=== PATIENT | female | born 1945 | race Hispanic/Latino ===

== ENCOUNTER → 2017-09-06 | Outpatient (CLI) | payer OTHER | END | disposition home or self-care (01) | LOC: RAH 09:18 | PROVIDERS: ATTEND Internal Medicine | DX: Z12.31 Encounter for screening mammogram for malignant neoplasm of breast (principal) | CPT/HCPCS: 77067 ==

== ENCOUNTER → 2018-09-07 | Outpatient (CLI) | payer OTHER | END | disposition home or self-care (01) | LOC: RAH 09:59 | PROVIDERS: ATTEND Internal Medicine | DX: Z12.31 Encounter for screening mammogram for malignant neoplasm of breast (principal) | CPT/HCPCS: 77067 ==

== ENCOUNTER → 2019-12-22 | Outpatient (CLI) | payer OTHER | END | disposition home or self-care (01) | LOC: RAH 11:30 | PROVIDERS: ATTEND Internal Medicine | DX: Z12.31 Encounter for screening mammogram for malignant neoplasm of breast (principal) | CPT/HCPCS: 77067 ==

== ENCOUNTER → 2020-12-23 | Outpatient (CLI) | payer OTHER | END | disposition home or self-care (01) | LOC: RAH 08:28 | PROVIDERS: ATTEND Internal Medicine | DX: Z12.31 Encounter for screening mammogram for malignant neoplasm of breast (principal) | CPT/HCPCS: 77067 ==

== ENCOUNTER → 2022-01-29 | Outpatient (CLI) | payer OTHER ==
[~2022-01-29] MED LIST: GADOTERATE MEGLUMINE 10 MMOL/20 ML VIAL IV ONE
== END | disposition home or self-care (01) ==
LOC: RAH 08:19
PROVIDERS: ATTEND Internal Medicine
DX: M48.061 Spinal stenosis, lumbar region without neurogenic claudication (principal); M54.16 Radiculopathy, lumbar region
CPT/HCPCS: 72158; A9575

== ENCOUNTER 2022-02-03 22:45 | Observation (INO) | payer OTHER ==
[~2022-02-03] VITALS: Ht 149.9 cm; Wt 50.7 kg
[2022-02-03 23:27] LABS: BASOPHILS % (AUTO) 0.2 % (0.0-5.0); EOSINOPHILS % (AUTO) 0.7 % (0.0-8.0); HEMATOCRIT 31.7 % (36-48); LYMPHOCYTES % (AUTO) 15.4 % (21.0-51.0); MEAN CORPUSCULAR HEMOGLOBIN 29.2 pg (27.0-33.0); MEAN CORPUSCULAR HGB CONC 33.8 g/dL (32.0-36.0); MEAN CORPUSCULAR VOLUME 86.6 fL (79-99); MONOCYTES % (AUTO) 7.8 % (3.0-13.0); NEUTROPHILS % (AUTO) 75.6 % (40.0-77.0); PLATELET COUNT (AUTO) 483 K/uL (130-400); RED BLOOD CELL COUNT(AUTO) 3.66 MIL/uL (4.00-5.50); RED CELL DISTRIBUTION WIDTH 11.9 % (11.0-15.5); WHITE BLOOD COUNT (AUTO) 8.8 K/uL (4.8-10.8)
[2022-02-03] MEDS ORDERED: KETOROLAC 30MG VIAL (30MG/ML) IVP ONE (23:30)
[2022-02-03] MEDS ORDERED: CYCLOBENZAPRINE HCL 10 MG TABLET PO ONE (23:30)
[2022-02-03] MEDS ORDERED: ONDANSETRON 4MG INJ IVP ONE (23:30)
[2022-02-03 23:46] LABS: CREATININE 0.6 mg/dL (0.5-1.5); POTASSIUM 3.7 mmol/L (3.5-5.1)
[2022-02-03 23:49] LABS: CRP QUANTITATIVE 86.2 mg/L (0.00-9.0); TOTAL PROTEIN, SERUM 6.9 g/dL (6.0-8.3)
[2022-02-03 23:52] LABS: APPEARANCE,URINE CLEAR (CLEAR); BILIRUBIN,URINE NEGATIVE (NEGATIVE); COLOR,URINE YELLOW (YELLOW); GLUCOSE, URINE (UA) NEGATIVE (NEGATIVE); KETONES,URINE NEGATIVE (NEGATIVE); LEUKOCYTE ESTERASE ,URINE NEGATIVE (NEGATIVE); NITRATE,URINE NEGATIVE (NEGATIVE); OCCULT BLOOD,URINE SMALL (NEGATIVE); PROTEIN,URINE NEGATIVE (NEGATIVE); UROBILINOGEN,URINE 0.2 mg/dL (0.2-1.0)
[2022-02-04] MEDS ORDERED: CLONIDINE HCL 0.1 MG TABLET PO PRN
[2022-02-04] MEDS ORDERED: TEMAZEPAM 15 MG CAPSULE PO PRN
[2022-02-04] MEDS ORDERED: LABETALOL 20MG SYG IV PRN
[2022-02-04] MEDS ORDERED: HYDRALAZINE 20MG/ML VIAL IV PRN
[2022-02-04] MEDS ORDERED: ONDANSETRON 4MG INJ IVP PRN
[2022-02-04] MEDS ORDERED: LACTULOSE 20 GM/30 ML UDCUP PO PRN
[2022-02-04] MEDS ORDERED: KETOROLAC 30MG VIAL (30MG/ML) IM PRN
[2022-02-04 00:03] LABS: BACTERIA,URINE None Seen /HPF (None Seen); SQUAMOUS EPITHELIAL CELL,UR Few /HPF (0-2); WBC,URINE 0-1 /HPF (0-1)
[2022-02-04 00:04] LABS: B-TYPE NATRIURETIC PEPTIDE 23 pg/mL (0-100)
[2022-02-04] MEDS: 0.9%NACL 1000ML 1,000 ML IV SCH ×3 (00:23→20:42)
[2022-02-04 03:00] VITALS: BP 136/76
[2022-02-04] MEDS ORDERED: IBUP-2077 PO (05:41)
[2022-02-04] MEDS ORDERED: ACET-2743 PO (05:41)
[2022-02-04] MEDS ORDERED: ROSU5TAB12 PO (05:42)
[2022-02-04] MEDS ORDERED: LISI40TA9 PO (05:42)
[2022-02-04 06:13] LABS: MEAN CORPUSCULAR HEMOGLOBIN 28.9 pg (27.0-33.0); MEAN CORPUSCULAR HGB CONC 33.1 g/dL (32.0-36.0); MEAN CORPUSCULAR VOLUME 87.3 fL (79-99); RED BLOOD CELL COUNT(AUTO) 3.32 MIL/uL (4.00-5.50); RED CELL DISTRIBUTION WIDTH 11.9 % (11.0-15.5)
[2022-02-04 06:23] LABS: CREATININE 0.7 mg/dL (0.5-1.5); PHOSPHORUS 3.9 mg/dL (2.5-4.9); POTASSIUM 4.2 mmol/L (3.5-5.1)
[2022-02-04] MEDS ORDERED: ERGO500093 PO (07:32)
[2022-02-04] MEDS ORDERED: NON FORMULARY PO (07:32)
[2022-02-04] MEDS ORDERED: CYAN100T45 PO (07:32)
[2022-02-04] MEDS ORDERED: UBID1CAP56 PO (07:32)
[2022-02-04] MEDS ORDERED: CALC-1252 PO (07:32)
[2022-02-04 07:50] VITALS: BP 134/79
[2022-02-04] MEDS: CYCLOBENZAPRINE HCL 10 MG TABLET PO SCH ×3 (09:19→20:42)
[2022-02-04] MEDS: ENOXAPARIN SODIUM 30 MG/0.3 ML SQ SCH (09:19)
[2022-02-04] MEDS: VIT E ACETATE PO SCH (11:23)
[2022-02-04] MEDS: UBIDECARENONE PO SCH (11:23)
[2022-02-04] MEDS ORDERED: IBUPROFEN 800 MG TAB PO PRN (11:30)
[2022-02-04] MEDS: CA 600MG+VIT D 400 UNIT TAB 1 TAB TABLET PO SCH (11:51)
[2022-02-04] MEDS: ACETAMINOPHEN 500 MG TABLET PO SCH ×4 (11:53→23:30)
[2022-02-04] MEDS: LISINOPRIL 40 MG TABLET ONE ×2 (13:57→13:58)
[2022-02-04 16:02] VITALS: BP 134/79
[2022-02-04] MEDS ORDERED: DEXAMETHASONE SOD PHOSPHATE 4 MG/ML 1ML VIAL IVP ONE (18:00)
[2022-02-04 19:30] VITALS: BP 140/83
[2022-02-04] MEDS ORDERED: ATORVASTATIN 10 MG TABLET PO SCH (21:00)
[2022-02-04 23:58] VITALS: BP 121/64
[2022-02-05 04:31] VITALS: BP 128/75
[2022-02-05] MEDS ORDERED: DEXAMETHASONE SOD PHOSPHATE 4 MG/ML 1ML VIAL IV SCH (06:00)
[2022-02-05] MEDS: 0.9%NACL 1000ML 1,000 ML IV SCH (06:00)
[2022-02-05] MEDS: ACETAMINOPHEN 500 MG TABLET PO SCH (06:10)
[2022-02-05 08:03] VITALS: BP 133/72
[2022-02-05] MEDS: CA 600MG+VIT D 400 UNIT TAB 1 TAB TABLET PO SCH (08:40)
[2022-02-05] MEDS: VIT E ACETATE PO SCH (08:42)
[2022-02-05] MEDS: UBIDECARENONE PO SCH (08:42)
[2022-02-05] MEDS: CYCLOBENZAPRINE HCL 10 MG TABLET PO SCH (08:47)
[2022-02-05] MEDS: ENOXAPARIN SODIUM 30 MG/0.3 ML SQ SCH (08:53)
[2022-02-05] MEDS ORDERED: ERGOCALCIFEROL (VITAMIN D2) 50,000 UNIT CAPSULE PO SCH (09:00)
[2022-02-05] MEDS ORDERED: LISINOPRIL 40 MG TABLET PO SCH (09:00)
[2022-02-05] MEDS ORDERED: CYANOCOBALAMIN (VITAMIN B-12) 100 MCG TABLET PO SCH (09:00)
[2022-02-05] MEDS ORDERED: VITAMIN D2 PO SCH (09:07)
[2022-02-05] MEDS ORDERED: PANT40TA55 PO (11:17)
[2022-02-05] MEDS ORDERED: LACTULOSE 20 GM/30 ML UDCUP PR SCH (11:30)
[2022-02-11] MEDS ORDERED: DULO30CA52 PO (14:09)
[2022-02-11] MEDS ORDERED: CHOL200052 PO (16:40)
[2022-02-11] MEDS ORDERED: MELA5TAB14 PO (16:40)
[2022-02-18] MEDS ORDERED: PIND5 PO (10:45)
== END 2022-02-05 17:50 | disposition home or self-care (01) ==
LOC: EDH 22:45 → EDHIP 02-04 01:41 → 3CH 02-04 03:06
PROVIDERS: ADMIT Internal Medicine; ATTEND Internal Medicine
DX: M48.07 Spinal stenosis, lumbosacral region (principal); Z20.822 Contact with and (suspected) exposure to COVID-19; M47.26 Other spondylosis with radiculopathy, lumbar region; D64.9 Anemia, unspecified; E87.8 Other disorders of electrolyte and fluid balance, not elsewhere classified; R73.9 Hyperglycemia, unspecified; I10 Essential (primary) hypertension; E78.5 Hyperlipidemia, unspecified; E78.00 Pure hypercholesterolemia, unspecified; F41.9 Anxiety disorder, unspecified; G47.33 Obstructive sleep apnea (adult) (pediatric); R42 Dizziness and giddiness; G89.4 Chronic pain syndrome; R09.02 Hypoxemia; Z79.899 Other long term (current) drug therapy
CPT/HCPCS: 96374; 96375 ×2; 99284; 84484; 80053; 83880; 85025; 83605; 86140; 81001; 71045; 96372 ×2; 96361 ×2; 83735; 84100; 80048; 85027; 87804 ×2; 36415 ×2; 87635; 72141; 72146; 96376; 82270; J1100 ×2; J2405; J1885; G0378 ×40; J7030 ×2; J1650 ×2

== ENCOUNTER → 2022-09-17 | Outpatient (CLI) | payer OTHER ==
[~2022-09-17] MED LIST changes: +ACET-2743 PO; +CALC-1252 PO; +CHOL200052 PO; -GADOTERATE MEGLUMINE 10 MMOL/20 ML VIAL IV ONE; +MELA5TAB14 PO; +PIND5 PO; +ROSU5TAB12 PO; +UBID1CAP56 PO
== END | disposition home or self-care (01) ==
LOC: RAH 09:46
PROVIDERS: ATTEND Internal Medicine
DX: Z12.31 Encounter for screening mammogram for malignant neoplasm of breast (principal)
CPT/HCPCS: 77067

== ENCOUNTER 2024-07-09 15:33 | Emergency (ER) | payer OTHER ==
[~2024-07-09] VITALS: Ht 149.9 cm; Wt 52.6 kg
[~2024-07-09 15:33] MED LIST changes: -MELA5TAB14 PO; +MELA5TAB66 PO; -ROSU5TAB12 PO; +ROSU5TAB51 PO
--- NOTE | 2024-07-09 15:43 | ERN ---
ED Note History of Present Illness Stated Complaint: CP Chief Complaint: Chest Pain Time Seen by MD: 15:39 Dictation: PATIENT IS A 78-YEAR-OLD FEMALE COMING IN TODAY WITH FEELING FLUSHED IN THE HEAD AND FACE, STATES HER BLOOD PRESSURE HAS BEEN ELEVATED SINCE THIS MORNING. SHE DENIES CHEST PAIN BACK PAIN SOB NO NAUSEA VOMITING. STATES SHE TAKES LISINOPRIL 10 MG DAILY, TOOK IT THIS MORNING AFTER BREAKFAST. CURRENT BLOOD PRESSURE 199/89 IN TRIAGE. PATIENT STATES SHE FEELS ANXIOUS. NIH IS 0 Allergies: Coded Allergies: codeine (Unverified Allergy, Mild, TREMBLING JAW, 01/29/22) promethazine (Unverified Allergy, Unknown, AGGRESSIVE BEHAVIOR, 01/29/22) sulfamethoxazole (Unverified Allergy, Unknown, NAUSEA, 01/29/22) trimethoprim (Unverified Allergy, Unknown, NAUSEA, 01/29/22) Home Meds Active Scripts Pindolol (Visken) 5 Mg Tab, 2.5 MG PO BID, #60 TAB 0 Refills Prov:CARMEN MARTINEZ [employer]IC[employer]ATION [employer]FTING OFFICER 02/18/22 Reported Medications Melatonin (Melatonin) 5 Mg Tablet, 5 MG PO HS PRN for INSOMNIA, TAB 02/11/22 Cholecalciferol (Vitamin D3) (Vitamin D3) 50 Mcg Tablet, 50 MCG PO DAILY, TAB 02/11/22 Ubidecarenone/Vit E Acetate (Co Q-10 100 mg Softgel) 1 Each Capsule, 1 EACH PO BID, CAP 02/04/22 Calcium/D3/Zinc/Copper/[place] (Citracal-D3 Maximum Plus Caplt) 1 Each Tablet, 1 EACH PO DAILY, TAB 02/04/22 Rosuvastatin Calcium (Rosuvastatin Calcium) 5 Mg Tablet, 5 MG PO DAILY, TAB 02/04/22 Acetaminophen (Tylenol Extra Strength) 500 Mg Tablet, 500 MG PO q 8hours for moderate pain, TAB 02/04/22 Past Medical History Past Medical History: High Cholesterol, Hypertension Additional Past Medical Hx: Lumbar spinal stenosis, chronic pain syndrome Surgical History: Family History: Negative Social History: Negative, Other History: Not Applicable RN Note Reviewed/Agreed w/PFSH: Yes Review of System Dictation CONSTITUTIONAL: NEGATIVE EXCEPT FOR HPI FLUSHED HEAD/FACE: NEGATIVE EXCEPT FOR HPI EENT: NEGATIVE EXCEPT FOR HPI RESPIRATORY: NEGATIVE EXCEPT FOR HPI GASTROINTESTINAL/ABDOMINAL: NEGATIVE EXCEPT FOR HPI GENITOURINARY: NEGATIVE EXCEPT FOR HPI MUSCULOSKELETAL: NEGATIVE EXCEPT FOR HPI INTEGUMENTARY: NEGATIVE EXCEPT FOR HPI NEUROLOGICAL/PSYCH: NEGATIVE EXCEPT FOR HPI HEMATOLOGIC/LYMPHATIC: NEGATIVE EXCEPT FOR HPI ALL SYSTEMS NEGATIVE, EXCEPT NOTED ABOVE. 13 POINT REVIEW OF SYSTEMS ASSESSED AND ALL NEGATIVE EXCEPT FOR ABOVE. Initial Vital Sign VS Vital Signs Date Time Temp Pulse Resp B/P (MAP) Pulse Ox O2 Delivery O2 Flow Rate FiO2 07/09/24 15:37 97.5 84 18 199/89 99 Room Air 07/09/24 16:00 0 21 Physical Exam Dictation VITAL SIGNS REVIEWED GENERAL APPEARANCE: ALERT, ORIENTED X 3, MILD ACUTE DISTRESS, WELL DEVELOPED, NOURISHED. ANXIOUS HEAD AND FACE: NON-TRAUMATIC. EYES: PERRL, PINK CONJUNCTIVAS, EYELID NO TRAUMA, ANTERIOR CHAMBER WITH ARCUS SENILIS. EARS: PINNAS INTACT AND NO SIGNS OF TRAUMA OR ERYTHEMA EAR CANALS CLEAR AND NO DISCHARGE TM NO ERYTHEMA NOSE: NO DISCHARGE, NO BLEEDING. OROPHARYNX: MOUTH NORMAL, TONGUE PINK, PHARYNX CLEAR,NO ERYTHEMA, TONSILS NO EXUDATES, NO ABSCESSES NOTED, MUCOUS MEMBRANE MOIST NECK: SUPPLE, NON-TENDER, NO THYROMEGALY, NO MASSES, NO JVD, NO BRUITS BREAST:DEFERRED CHEST:NO TENDERNESS, NO CREPITUS, NO PARADOXICAL MOVEMENT, NO RETRACTIONS LUNGS:CLEAR, WELL-VENTILATED, SYMMETRIC, NO RALES, NO WHEEZING, NO RHONCHI, NO STRIDOR, GOOD BREATH SOUNDS BILATERALLY HEART: REGULAR RATE, REGULAR RHYTHM, NO MURMUR, NO GALLOPS VASCULAR: NO PERIPHERAL EDEMA, ABDOMEN: SOFT, POSITIVE BOWEL SOUNDS, NONDISTENDED, NO GUARDING, NONTENDER, NO REBOUND, NO MASSES NO HEPATOMEGALY, NO SPLENOMEGALY, NO CORREA'S SIGN, NO HERNIAS. RECTAL: DEFERRED GENITAL: DEFERRED NEUROLOGICAL: NORMAL SPEECH, MOTOR FUNCTION INTACT, SENSORY FUNCTION INTACT MUSCULOSKELETAL: NECK NONTENDER, FULL RANGE OF MOTION, BACK NONTENDER, FULL RANGE OF MOTION, EXTREMITIES: NONTENDER, FULL RANGE OF MOTION SKIN: COLOR PINK, DRY, NO TURGOR, NO RASH, NO LACERATIONS, NO ABRASIONS, NO CONTUSIONS. LYMPHATIC: DEFERRED Results (Laboratory/Radiology) Laboratory/Radiology Laboratory Tests Test 07/09/24 16:15 White Blood Count 6.9 K/uL (4.8-10.8) Red Blood Count 4.44 MIL/uL (4.00-5.50) Hemoglobin 13.5 g/dL (12.0-16.0) Hematocrit 40.6 % (36-48) Mean Corpuscular Volume 91.4 fL (79-99) Mean Corpuscular Hemoglobin 30.4 pg (27.0-33.0) Mean Corpuscular Hemoglobin Concent 33.3 g/dL (32.0-36.0) Red Cell Distribution Width 11.9 % (11.0-15.5) Platelet Count 222 K/uL (130-400) Mean Platelet Volume 9.8 fL (7.5-10.5) Immature Granulocyte % (Auto) 0.3 % (0-1) Neutrophils (%) (Auto) 62.5 % (40.0-77.0) Lymphocytes (%) (Auto) 26.9 % (21.0-51.0) Monocytes (%) (Auto) 6.9 % (3.0-13.0) Eosinophils (%) (Auto) 3.0 % (0.0-8.0) Basophils (%) (Auto) 0.4 % (0.0-5.0) Neutrophils # (Auto) 4.3 K/uL (1.8-7.7) Lymphocytes # (Auto) 1.9 K/uL (1.0-4.8) Monocytes # (Auto) 0.5 K/uL (0.1-1.0) Eosinophils # (Auto) 0.21 K/uL (0.00-0.70) Basophils # (Auto) 0.03 K/uL (0.00-0.20) Absolute Immature Granulocyte (auto 0.02 K/uL (0-1) Nucleated Red Blood Cells 0.0 % (0.0-0.19) Sodium Level 138 mmol/L (136-145) Potassium Level 4.0 mmol/L (3.5-5.1) Chloride Level 100 mmol/L (101-111) L Carbon Dioxide Level 31 mmol/L (21-32) Blood Urea Nitrogen 13 mg/dL (7-18) Creatinine 0.6 mg/dL (0.5-1.0) Glomerular Filtration Rate Calc 92 mL/min (>90) Random Glucose 95 mg/dL (70-105) Total Calcium 9.1 mg/dL (8.5-10.1) Troponin I High Sensitivity < 4 ng/L (4-50) L Labs Reviewed?: Yes EKG: (+) NSR EKG Comment: EKG NORMAL SINUS RHYTHM/HEART RATE 63/AXIS NORMAL/NO ECTOPY ED Course ED Course Orders Procedure Category Date Status Time Clonidine Hcl 0.1 Mg PHA 07/09/24 Complete Tablet (Catapres 0. 16:00 Cbc With Differential LAB 07/09/24 Complete 15:41 Troponin I High LAB 07/09/24 Complete Sensitivity 15:41 Basic Metabolic Panel LAB 07/09/24 Complete 15:41 12 Lead Ekg Tracing- EKG 07/09/24 Complete Technical 15:41 Current Medications Medications (Trade) Dose Ordered Sig/Lorenzo Route PRN Reason Start Time Stop Time Status Last Admin Dose Admin Clonidine HCl (CATApres 0.1 mg TAB) 0.1 mg ONCE ONCE PO 07/09/24 16:00 07/09/24 16:01 DC 07/09/24 16:13 Vital Signs Date Time Temp Pulse Resp B/P (MAP) Pulse Ox O2 Delivery O2 Flow Rate FiO2 07/09/24 17:00 65 15 154/77 99 Room Air* 0 21 07/09/24 16:13 180/84 07/09/24 16:00 98.1 71 15 180/84 98 Room Air* 0 21 07/09/24 15:37 97.5 84 18 199/89 99 Room Air REPEAT BLOOD PRESSURE 154/77. PATIENT REMAINS WITHOUT CHEST PAIN AT THIS TIME. SHE IS AWARE HER CARDIAC WORKUP IS NEGATIVE, LISINOPRIL WE WILL BE INCREASED TO 20 MG P.O. DAILY. ALSO SEE HER PRIMARY CARE DOCTOR FOR FOLLOW UP HEART Score Response (Comments) Value History: Low suspicion (0) 0 EKG: Repolarization changes 1 Age: 45-65yrs (+1) 1 Risk Factors: 1-2 risk factors (+1) 1 Initial Troponin: Normal limit (0) 0 Total 3 Medical Decision Making MDM MDM: DIFFERENTIAL DIAGNOSIS: ACS/AMI/ELECTROLYTE IMBALANCE/DEHYDRATION/UNCONTROLLED HYPERTENSION RATIONALE: TESTS CONSIDERED AND ORDERED SECONDARY TO SHARED DECISION MAKING INCLUDE: EKG/LABS PREVIOUS OUTSIDE RECORDS REVIEWED: OLD ER VISITS. RISK OF COMPLICATION AND/OR MORBIDITY OR MORTALITY OF PATIENT MANAGEMENT: NONE MEDICATIONS-PER MEDICATION RECONCILIATION NEED FOR HOSPITALIZATION: PATIENT DOES NOT MEET CRITERIA FOR HOSPITALIZATION. NO NEED FOR EMERGENCY MAJOR/MINOR SURGERY: NO THERE ARE NO SOCIAL CONCERNS WITH THIS PATIENT. PRESCRIPTION DRUG MANAGEMENT INCREASE LISINOPRIL FROM 10 MG DAILY TO 20 MG DAILY. PRESCRIPTIONS WILL INCLUDE SYMPTOMATIC CARE PATIENT'S PRIOR EXTERNAL MEDICAL RECORDS FROM OTHER ER VISITS WERE REVIEWED BY ME INDICATED. PRIOR TESTING AND RESULTS FROM PREVIOUS VISITS WERE REVIEWED. PRIOR TESTS WERE TAKEN INTO ACCOUNT WITH MEDICAL DECISION MAKING AND RESOURCE UTILIZATION, INDEPENDENT HISTORIAN/HISTORIANS WERE USED TO OBTAIN COMPLETE MEDICAL HISTORY. I INDEPENDENTLY INTERPRETED THE TEST THAT WERE PERFORMED, RESULTS WERE REVIEWED BY ME AND CONSIDERED FINDINGS ON RADIOLOGY IF ORDERED. MEDICAL MANAGEMENT AND EXAMINATION INTERPRETATION DISCUSSIONS WERE HAD BY ME WITH OTHER QUALIFIED HEALTHCARE PROFESSIONALS INDICATED FOR THE PATIENT'S CARE. DX & DISP Disposition: Discharge Departure Impression: Primary Impression: Atypical chest pain Additional Impressions: Accelerated hypertension, Anxiety Condition: Stable Scripts Lisinopril (Lisinopril) 20 Mg Tablet 1 TAB PO DAILY for 30 Days, #30 TAB 0 Refills Prov: LORI CABA NP 07/09/24 Additional Instructions: FOLLOW-UP WITH PRIMARY CARE PROVIDER IN 1 TO 2 DAYS. TAKE MEDICATIONS DIRECTED HERE IN THE EMERGENCY ROOM. OKAY TO CONTINUE HOME MEDICATIONS UNLESS OTHERWISE DISCUSSED DURING YOUR VISIT IN THE EMERGENCY ROOM TODAY. RETURN TO YOUR NEAREST EMERGENCY ROOM IF SYMPTOMS WORSEN OR IF THERE IS NO IMPROVEMENT. CALL 911 IF YOU NEED IMMEDIATE ASSISTANCE. TAKE TYLENOL OR MOTRIN [id number] NEEDED AND IF NO CONTRAINDICATIONS ARE PRESENT. INCREASE ORAL HYDRATION. A WOUND CULTURE OR URINE CULTURE WAS ORDERED HERE IN THE EMERGENCY ROOM DEPARTMENT PLEASE FOLLOW-UP WITH PRIMARY CARE PROVIDER AND ADVISE THEM TO GET REPEAT PORTS FROM OUR FACILITY. IF YOU HAD ANY BRETT WRAP/SPLINTS T HAT WERE APPLIED HERE, PLEASE DO NOT REMOVE THEM UNTIL YOU SEE YOUR PRIMARY CARE OR SPECIALTY. INCREASE LISINOPRIL TO 20 MG DAILY, SEE YOUR PRIMARY CARE DOCTOR FOR FOLLOW UP IN 1-2 DAYS. Referrals: CONCHA LUNA MD (PCP) Time of Disposition: 18:30 I have reviewed the case, and I agree with, Diagnosis and Plan LORI CABA NP Jul 09, 2024 15:43
--- NOTE | 2024-07-09 16:00 | NUR ---
PATIENT BEDDED TO RM 18
[2024-07-09] MEDS: cloNIDine HCL 0.1 MG TABLET PO ONE (16:13)
--- NOTE | 2024-07-09 16:20 | EKG ---
[facility] Test Date: 2024-07-09 Test Time: 15:37:58 Pat Name: VERONICA MORENO Department: ED Room: Gender: F Industrial Paramedic: [id number] : 1945 Requested By: MILAD FRANKLIN Order Number: [id number] Reading MD: Joe Sosa Measurements Intervals [place] Rate: 63 P: 56 TN: 166 QRS: 19 QRSD: 91 T: 74 QT: 392 QTc: 402 Interpretive Statements Sinus rhythm Compared to ECG 02/11/2022 08:37:54 No significant changes Electronically Signed On 07-10-2024 21:40:42 BRACE MAKER by Joe Sosa Please click the below link to view image of tracing.
[2024-07-09 16:27] LABS: BASOPHILS # (AUTO) 0.03 K/uL (0.00-0.20); BASOPHILS % (AUTO) 0.4 % (0.0-5.0); EOSINOPHILS # (AUTO) 0.21 K/uL (0.00-0.70); HEMATOCRIT 40.6 % (36-48); IMMATURE GRANULOCYTE ABSOLUTE 0.02 K/uL (0-1); LYMPHOCYTES # (AUTO) 1.9 K/uL (1.0-4.8); LYMPHOCYTES % (AUTO) 26.9 % (21.0-51.0); MEAN CORPUSCULAR HEMOGLOBIN 30.4 pg (27.0-33.0); MEAN CORPUSCULAR HGB CONC 33.3 g/dL (32.0-36.0); MEAN CORPUSCULAR VOLUME 91.4 fL (79-99); MONOCYTES # (AUTO) 0.5 K/uL (0.1-1.0); MONOCYTES % (AUTO) 6.9 % (3.0-13.0); NEUTROPHILS # (AUTO) 4.3 K/uL (1.8-7.7); NEUTROPHILS % (AUTO) 62.5 % (40.0-77.0); PLATELET COUNT (AUTO) 222 K/uL (130-400); RED BLOOD CELL COUNT(AUTO) 4.44 MIL/uL (4.00-5.50); RED CELL DISTRIBUTION WIDTH 11.9 % (11.0-15.5); WHITE BLOOD COUNT (AUTO) 6.9 K/uL (4.8-10.8)
[2024-07-09 16:49] LABS: CREATININE 0.6 mg/dL (0.5-1.0)
[2024-07-09] MEDS ORDERED: LISI20TA24 PO (18:30)
[2024-07-09 18:39] VITALS: BP 119/63; PULSE 65; RESP 15; TEMP 98; O2SAT 99
== END 2024-07-09 18:54 | disposition home or self-care (01) ==
LOC: EDH 15:33
DX: R07.89 Other chest pain (principal); I10 Essential (primary) hypertension; F41.9 Anxiety disorder, unspecified; E78.00 Pure hypercholesterolemia, unspecified; Z79.899 Other long term (current) drug therapy; Z88.1 Allergy status to other antibiotic agents; Z88.2 Allergy status to sulfonamides; Z88.5 Allergy status to narcotic agent
CPT/HCPCS: 36415; 80048; 84484; 85025; 93005; 99285

== ENCOUNTER → 2024-07-24 | Outpatient (CLI) | payer OTHER ==
[~2024-07-24] MED LIST changes: +LISI20TA24 PO
--- NOTE | 2024-07-24 15:00 | HMCIMG ---
US VENOUS DOPPLER UNILATERAL REASON: cramp and spasm COMPARISON: None Technique: Right venous doppler ultrasound was performed with spectral analysis and color flow imaging technique. FINDINGS: There is a normal appearance of the common femoral, deep femoral, the profunda femoris and popliteal veins. Proximal calf veins appear normal as well. There is normal response to compression and augmentation. There is no evidence of deep venous thrombosis. IMPRESSION: Normal right lower extremity venous Doppler ultrasound.
--- NOTE | 2024-07-24 15:01 | HMCIMG ---
US ARTERIAL UNILA LOW EXT DUPL REASON: cramp and spasm COMPARISON: None TECHNIQUE: Right leg arterial Doppler evaluation was performed with spectral analysis and color flow imaging. FINDINGS: There are normal triphasic waveforms present throughout the right lower extremity with the exception of the posterior tibial artery distally which is biphasic. Flow velocities are preserved throughout. There is no evidence of arterial inflow occlusion. IMPRESSION: 1. No evidence of arterial inflow occlusion in the right lower extremity.
== END | disposition home or self-care (01) ==
LOC: RAH 13:09
PROVIDERS: ATTEND Internal Medicine
DX: Z51.11 Encounter for antineoplastic chemotherapy (principal); C50.011 Malignant neoplasm of nipple and areola, right female breast; R25.2 Cramp and spasm; M79.604 Pain in right leg; Z79.899 Other long term (current) drug therapy
CPT/HCPCS: 93926; 93971

== ENCOUNTER → 2024-09-08 | Outpatient (CLI) | payer OTHER ==
--- NOTE | 2024-09-08 15:34 | HMCIMG ---
Exam Type: CT ABD/PEL WO CON RENAL/APPY Clinical Information: HEMATURIA Comparison: None Contrast: 100 cc's Isovue 370 IV, no complications or adverse reactions CT Dose Index (CTDI): 31.60 mGy Dose Length Product (DLP): 1740.80 total mGy-cm Findings: No evidence of nephro or ureterolithiasis is found. No hydronephrosis or ureteral dilatation is seen. The lung bases are clear. The stomach is unremarkable. It shows no wall thickening. No gross ulceration is seen. It is not overly distended. There are no surrounding inflammatory changes. No wall lesions are identified to suggest cancer. The spleen is unremarkable. It is not enlarged. The pancreas shows normal anatomy. It is not fatty replaced. It shows no lesions. The pancreatic duct is not dilated. The gallbladder is unremarkable. It shows no cholelithiasis. The gallbladder wall is normal in thickness. There is no pericholecystic fluid. The is no acute or chronic inflammation noted. The adrenal glands are unremarkable. There is no enlargement. No lesions are noted. The liver is enlarged and shows simple cysts but no worrisome lesions. The appendix is unremarkable. It shows no evidence of inflammation. No appendicolith is seen. The small bowel is unremarkable. There is no evidence of dilatation to suggest obstruction. No evidence of adynamic ileus is seen. There is no small bowel wall thickening to suggest enteritis. The colon is unremarkable. The urinary bladder is unremarkable. There is no wall thickening to suggest tumor or inflammation. There are no intraluminal calculi. There are no diverticula. There is no evidence of chronic bladder outlet obstruction. There is no evidence of urinary bladder distention to suggest urinary retention. The other pelvic structures are unremarkable. The bony and vascular structures are unremarkable for the patient's age. IMPRESSION: The liver is enlarged and shows simple cysts but no worrisome lesions. Otherwise unremarkable exam. This study was performed using dose reduction techniques to include automated exposure control and/or adjustment of the mA and/or kV according to patient size.
== END | disposition home or self-care (01) ==
LOC: RAH 13:49
PROVIDERS: ATTEND Student in an Organized Health Care Education/Training Program
DX: K76.89 Other specified diseases of liver (principal); R16.0 Hepatomegaly, not elsewhere classified; R31.9 Hematuria, unspecified
CPT/HCPCS: 74176

== ENCOUNTER → 2025-01-16 | Outpatient (CLI) | payer OTHER ==
[~2025-01-16] MED LIST changes: -PIND5 PO; +PIND5TAB8 PO
--- NOTE | 2025-01-30 13:43 | HMCIMG ---
CLINICAL INDICATION: Postmenopausal COMPARISON: None available TECHNIQUE: Bone densitometry is performed of the lumbar spine and left hip. FINDINGS: Total BMD of lumbar spine is 47.16 g/cm2 with a T-score of -1.4 and Z-score is 1.3. Total BMD of left hip is 25.81 g/cm2 with a T-score of 0.767 and Z-score is 0.6. FRAX SCORE: The 10 year fracture risk for a major osteoporotic fracture and hip fracture 8.3% IMPRESSION: 1. Osteopenia lumbar spine 2. Osteopenia for left hip World Health Organization criteria for BMD interpretation classify patients as Normal (T-score at or above -1.0), Osteopenic (T-score between -1.0 and -2.5), or Osteoporotic (T-score at or below -2.5). FRAX SCORE: A. All treatment decisions require clinical judgment and consideration of individual patient factors, including patient preferences, comorbidities, previous drug use, risk factors not captured in the FRAX model (e.g., frailty, falls, vitamin D deficiency, increased bone turnover, interval significant decline in bone density) and possible [id number]-estimation of fracture risk by FRAX. B. In addition, the NOF Guide recommends that FDA-approved medical therapies be considered in postmenopausal women and men age greater than or equal to 50 years with a: i. Hip or vertebral (clinical or morphometric) fracture. ii. T-score of less than or equal to -2.5 at the spine or hip. iii. Ten-year fracture probability by FRAX of greater than or equal to 3% for hip fracture of greater than or equal to 20% for major osteoporotic fracture.
== END | disposition home or self-care (01) ==
LOC: RAH 09:00
PROVIDERS: ATTEND Internal Medicine
DX: M85.89 Other specified disorders of bone density and structure, multiple sites (principal); Z78.0 Asymptomatic menopausal state
CPT/HCPCS: 77080